=== PATIENT | female | born 1990 | race Caucasian/White ===

== ENCOUNTER 2019-05-19 08:27 | Day surgery (SDC) | payer OTHER ==
[2019-05-19] MEDS ORDERED: PROPOFOL 20 ML ONE ×2 (08:45)
[2019-05-19 09:06] VITALS: TEMP 98.3; BMI 33.8
[2019-05-19 10:16] VITALS: BP 113/67; PULSE 87
== END 2019-05-19 10:20 | disposition home or self-care (01) ==
LOC: FASU-ENDO 08:27
PROVIDERS: ATTEND Internal Medicine Gastroenterology
PROC: 0DJD8ZZ Inspection of Lower Intestinal Tract, Via Natural or Artificial Opening Endoscopic (ICD-10-PCS; principal; 2019-05-19 09:26)
DX: K59.09 Other constipation (principal)
CPT/HCPCS: 84703